=== PATIENT | female | born 2000 | race Caucasian/White ===

== ENCOUNTER 2021-12-26 22:54 | Emergency (ER) | payer OTHER, SELFPAY ==
[2021-12-26 22:56] VITALS: BP 131/77; PULSE 90; O2SAT 97
[2021-12-26 22:59] VITALS: BP 131/77; PULSE 93; RESP 18; TEMP 37.2; O2SAT 97; BMI 22.3
[2021-12-26 23:00] VITALS: BP 130/76; PULSE 79; O2SAT 98
--- NOTE | 2021-12-26 23:02 | DI.RAD.S_ITS ---
PROCEDURE: XR ANKLE RT MIN 3V INDICATIONS: pain TECHNIQUE: 3 views of the ankle were acquired. COMPARISON: None. FINDINGS: Bones: There are mildly displaced spiral fractures of the distal tibial and fibular shafts. No dislocations. Soft tissues: There is a small tibiotalar joint effusion. Achilles tendon appears intact. IMPRESSION: 1. Mildly displaced fractures of the distal tibia and fibula as described. Dictated by: Jose Howell M.D. on 12/27/2021 at 0:42 Approved by: Jose Howell M.D. on 12/27/2021 at 0:45
[2021-12-26] MEDS: HYDROMORPHONE 0.5 MG INJ IV ×2 (23:26→23:55)
[2021-12-26] MEDS: KETOROLAC 30 MG/ML VIAL 15 MG IV (23:26)
[2021-12-26] MEDS: ONDANSETRON 4 MG/2 ML INJ IV (23:26)
[2021-12-26 23:30] VITALS: BP 119/71; PULSE 75; O2SAT 97
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
--- NOTE | 2021-12-26 23:46 | DI.RAD.S_ITS ---
PROCEDURE: XR TIBIA FUBULA RT 2V INDICATIONS: distal fracture TECHNIQUE: 2 views of the tibia and fibula were acquired. COMPARISON: [facility], CR, XR ANKLE RT MIN 3V, 12/26/2021, 23:10. FINDINGS: Bones: There are mildly displaced comminuted fractures of the distal tibial and fibular shafts. There is associated mild lateral angulation. Soft tissues: No suspicious soft tissue calcifications or masses. IMPRESSION: 1. Mildly displaced and angulated fractures of the distal tibia and fibula. Dictated by: Jose Howell M.D. on 12/27/2021 at 0:50 Approved by: Jose Howell M.D. on 12/27/2021 at 0:51
[2021-12-27] VITALS (30 sets, daily range): BP systolic 104–132; BP diastolic 55–91; PULSE 73–106; RESP 14; O2SAT 95–100
[2021-12-27] MEDS: HYDROMORPHONE 0.5 MG INJ IV ×5 (00:09→03:51)
[2021-12-27] MEDS: SODIUM CHLORIDE 0.9% 1,000 ML 150 ML IV (02:15)
[2021-12-27 05:28] LABS: COVID19 -Nasal RAPID Negative (Negative)
--- NOTE | 2021-12-27 05:31 | DI.RAD.S_ITS ---
PROCEDURE: XR TIBIA FUBULA RT 2V INDICATIONS: post reduction/splinting TECHNIQUE: 2 views of the tibia and fibula were acquired. COMPARISON: [facility], CR, XR TIBIA FIBULA RT 2V, 12/26/2021, 23:55. FINDINGS: Bones: There is interval reduction of earlier noted displaced distal tibial and fibular shaft fractures with slightly improved lower leg alignment. No new fracture or dislocation. No suspicious bony lesions. Soft tissues: No suspicious soft tissue calcifications or masses. IMPRESSION: Interval reduction of earlier noted displaced distal tibial and fibular shaft fractures with improved lower leg alignment. Dictated by: Karan Basilio M.D. on 12/27/2021 at 8:08 Approved by: Karan Basilio M.D. on 12/27/2021 at 8:08
[2021-12-27] MEDS: KETAMINE 500 MG/5 ML INJ 60 MG IV (05:34)
[2021-12-27] MEDS: OXYCODONE/ACETAMINOPHEN 5/325 TABLET 2 TAB PO (06:11)
[2021-12-27] MEDS: OXYCODONE/APAP 5/325 PREPACK 1 BOTTLE MISC (06:12)
== END 2021-12-27 07:09 | disposition home or self-care (01) ==
PROVIDERS: Emergency Provider Emergency Medicine
DX: S82.241A Displaced spiral fracture of shaft of right tibia, initial encounter for closed fracture (principal); S82.401A Unspecified fracture of shaft of right fibula, initial encounter for closed fracture; W19.XXXA Unspecified fall, initial encounter; Z20.822 Contact with and (suspected) exposure to COVID-19; Y99.0 Civilian activity done for income or pay
CPT/HCPCS: 27752; 73590; 73610; 87635; 96374; 96375; 96376; 99152; 99284; C9803; J1170; J1885; J2405